=== PATIENT | male | born 1950 | race Caucasian/White ===

== ENCOUNTER 2020-06-26 11:50 | Outpatient (CLI) | payer OTHER, SELFPAY ==
[2020-06-26 10:45] LABS: HCT 40.9 % (40.0-50.0); HGB 13.9 g/dL (13.5-17.5); MCH 33.9 pg (27.0-33.0); MCV 99.8 fL (80-95); MPV 9.9 fL (8.0-11.0); Platelet Count 195 10^3/uL (130-400); RDW 13.7 % (11.8-14.1); RDW-SD 50.6 fL; WBC 7.92 10^3/uL (4.4-10.8)
== END 2020-06-26 12:10 ==
PROVIDERS: Visit Provider Orthopaedic Surgery
DX: E85.9 Amyloidosis, unspecified (principal)
CPT/HCPCS: 36415; 85027

== ENCOUNTER 2020-09-30 09:49 | Outpatient (REF) | payer OTHER, SELFPAY ==
[2020-09-30 10:35] LABS: Bilirubin Negative (Negative); Blood Trace-intact (Negative); Clarity Clear (Clear); Glucose Negative (Negative); Ketones Negative (Negative); Leukocyte Esterase Negative (Negative); Nitrite Negative (Negative); Specific Gravity 1.015 (1.005-1.025); Urobilinogen 0.2 EU/dL (Up TO 0.2)
[2020-09-30 10:52] LABS: Bacteria Rare HPF (Negative); Casts Negative LPF (Negative); Crystals Negative HPF (Negative); Epithelial Cells Negative HPF (Negative); Mucus Negative (Negative); Other Cells Few Renal (Negative); WBC 0-2 HPF (0-5)
[2020-09-30 10:53] LABS: C & S Indicated? No
== END 2020-09-30 09:50 | disposition home or self-care (01) ==
LOC: LBN 09:49
PROVIDERS: Visit Provider Orthopaedic Surgery
DX: E11.9 Type 2 diabetes mellitus without complications (principal)
CPT/HCPCS: 81003; 81015